=== PATIENT | female | born 1955 | race Caucasian/White ===

== ENCOUNTER 2022-01-25 07:50 | Day surgery (SDC) | payer OTHER ==
[2022-01-25 10:18] VITALS: BP 120/78; PULSE 62; TEMP 98
== END 2022-01-25 10:45 | disposition home or self-care (01) ==
LOC: FASU-ENDO 07:50
PROVIDERS: ATTEND Internal Medicine Gastroenterology
PROC: 0DJD8ZZ Inspection of Lower Intestinal Tract, Via Natural or Artificial Opening Endoscopic (ICD-10-PCS; principal; 2022-01-25 09:45)
DX: Z12.11 Encounter for screening for malignant neoplasm of colon (principal); K57.30 Diverticulosis of large intestine without perforation or abscess without bleeding